=== PATIENT | male | born 1940 | race Caucasian/White ===

== ENCOUNTER 2022-12-18 10:42 | Emergency (ER) | payer MEDICARE ==
[~2022-12-18] VITALS: Ht 182.9 cm; Wt 95.3 kg
[2022-12-18] MEDS ORDERED: TETANUS/DIPHTHERIA TOXOID [ADULT] 0.5 ML VIAL IM ONE (12:00)
[2022-12-18 12:21] VITALS: BP 144/75
== END 2022-12-18 12:33 | disposition home or self-care (01) ==
LOC: EDH 10:42
DX: S60.411A Abrasion of left index finger, initial encounter (principal); W23.0XXA Caught, crushed, jammed, or pinched between moving objects, initial encounter; Y93.89 Activity, other specified; Y92.89 Other specified places as the place of occurrence of the external cause; Y99.8 Other external cause status
CPT/HCPCS: 29130; 90471; 90714